=== PATIENT | female | born 1950 | race African-American/Black ===

== ENCOUNTER → 2016-06-02 | Outpatient (CLI) | payer MEDICARE, MEDICAID ==
[~2016-06-02] MED LIST: ABILIFY2 MG PO; ADALAT CC60 MG PO; ADVAIR 100/28 DISKU1 IH; ADVAIR 100/28 DISKUS IH; ADVAIR IH; ADVIL200 MG PO; ALBUTEROL0.09 MG/A1 IH; ALBUTEROL1.25 MG/3 IH; ALMACONE 360 M360 ML PO; ALPARAZOLAM0.5 MG PO; ALPRAZOLAM0.25 M1 PO; AMBIEN 5MG TABLE5 MG PO; ARTHROTEC PO; ASCRIPTIN1 TA1 PO; ASPI325T6; ASPIR-LOW81 MG PO; ASPIRIN 32325 MG/TAB PO; ASPIRIN 81M81 MG/TA2; ASPIRIN 81M81 MG/TA2 PO; ASPIRIN E.C. 8181 MG PO; ASPIRIN E.C.325 MG PO; ATIVAN0.5 MG PO; BENADRYL25 MG PO; BENICAR; BENICAR 20MG TA20 MG PO; BENICAR PO; BRILINTA90 MG PO; BUFFERED ASPIRIN; BUSPAR 15MG TAB15 MG PO; BUSPAR DIVIDOSE15 MG PO; BUSPAR10 MG PO; BUSPIRONE PO; BUSPIRONE15 MG PO; CARDIZEM CD 24240 MG PO; CARDIZEM CD240 MG; CARDIZEM LA240 MG PO; CARTIA XT PO; CARTIA XT240 MG PO; CATAPRES 0.1MG0.1 MG PO; CATAPRES-T0.1 MG/24 TD; CATAPRES0.1 MG PO; CATAPRES0.2 MG PO; CELEXA; CELEXA 20MG20 MG/TAB PO; CELEXA40 MG PO; CITALOPRAM20 MG PO; CITALOPRAM40 MG PO; CLARITIN 1010 MG/TAB PO; CLARITIN10 MG PO; CLEOCIN HC150 MG/CAP PO; CLONAZEPAM PO; CLONAZEPAM2 MG PO; CLONIDINE0.1 MG PO; CLOPIDOGREL PO; COLACE 100100 MG/CAP PO; COLACE100 MG/10 PO; COUMADIN5 MG PO; CYMBALTA; CYMBALTA 60MG60 MG PO; DARVOCET N; DESYREL 50MG50 MG PO; DESYREL DIVIDO150 M1 PO; DOXYCYCLINE 10100 MG PO; DULCOLAX STOOL100 MG PO; EFFIENT10 MG PO; FELDENE10 MG PO; FLONASEALLERGY NS; GABAPENTIN; GLUCOPHAGE1000 MG PO; GLUCOTROL XL2.5 MG PO; GOOD NEIGH1200 MG/15 PO; HCTZ 25MG25 MG PO; IMDUR 30MG30 MG/TAB PO; IMDUR 60MG60 MG/TAB PO; IMDUR120 MG PO; IMDUR30 MG PO; IMODIUM 2MG CAPS2 MG PO; ISOSORBIDE30 MG PO; K-DUR 2020 MEQ PO; K-DUR20 MEQ PO; K-LOR CON PO; KLONOPIN 0.5MG0.5 MG PO; KLOR-CON M2020 MEQ PO; L-THYROXINE PO; LANTUS SOLOS100 U/ML SC; LANTUS100 U/ML SC; LANTUS100 U/ML SQ; LASIX 40MG TABL40 MG PO; LASIX40 MG PO; LEVOTHROID0.175 MG PO; LEVOTHYROXIN0.025 MG PO; LEVOTHYROXINE PO; LEVOXYL0.025 MG; LEVOXYL0.1 MG PO; LEVOXYL0.125 MG PO; LISINOPRIL PO; LOPRESSOR 225 MG/TAB PO; LOPRESSOR100 MG PO; LORTAB 5/500 501 TAB PO; METFORMIN HCL500 M1 PO; METOCLOPRAMIDE5 MG PO; METOPROLOL; METOPROLOL SUCC50 MG PO; METOPROLOL25 MG PO; MIRALAX 255 GM255 GM PO; MOBIC 7.5MG7.5 MG PO; NEURONTIN100 MG/CAP PO; NEXIUM 40MG40 MG PO; NEXIUM40 MG PO; NITROQUICK0.4 MG SL; NITROSTAT0.4 MG SL; NITROSTAT0.4 MG/TAB SL; NORCO 325 MG-101 TAB PO; NORCO 325 MG-51 TAB PO; NOVOLOG FLEX100 U/ML SQ; PERCOCET 325 MG1 TA2 PO; PHENERGAN12.5 MG/SU RC; PLAVIX 75MG TAB75 MG; PLAVIX 75MG TAB75 MG PO; POTASSIUM CH2 MEQ/ML PO; POTASSIUM CL 220 MEQ PO; PRAVACHOL80 MG PO; PRAVASTATIN SOD80 MG PO; PREDNISONE20 MG PO; PRILOSEC 20MG20 MG PO; PRILOSEC10 MG PO; PRINIVIL10 MG PO; PRISTIQ 50 MG T50 MG PO; PROCARDIA XL 6060 MG PO; PROTONIX 40MG T40 MG PO; PROVENTIL0.09 MG/A1 IH; QUININE SULFAT324 MG PO; RANEXA 500MG T500 MG PO; REGLAN 5MG T5 MG/TAB PO; REGLAN10 MG PO; RELION VEN0.09 MG/Ac IH; REQUIP 0.5MG0.5 MG PO; SENNA-S 50 MG-81 TAB PO; SENOKOT S 50 MG1 TAB; SENOKOT S 50 MG1 TAB PO; SENOKOT-S TAB1 UDTAB PO; SENOKOT8.6 MG PO; SEROQUEL 1100 MG/TAB PO; SEROQUEL 200MG200 MG PO; SEROQUEL PO; SEROQUEL200 MG PO; SEROQUEL300 MG PO; SYNTHROID0.1 MG/TAB PO; SYNTHROID0.112 MG/T PO; SYNTHROID0.15 MG PO; SYNTHROID0.175 MG PO; TOPROL XL100 MG PO; TRADJENTA5 MG PO; TRAMADOL50 MG PO; TYLENOL #3 301 UDTAB PO; TYLENOL 325MG325 MG PO; TYLENOL EXTRA500 M1 PO; ULTRAM 50MG TAB50 MG; ULTRAM 50MG TAB50 MG PO; UNABLE; VENTOLIN H0.09 MG/AC IH; VITAMIN D32000 IU PO; VOLTAREN50 MG PO; XANAX0.25 MG PO; ZANTAC 150MG T150 MG PO; ZESTRIL30 MG PO; ZESTRIL40 MG PO; ZITHROMAX500 M2 PO; ZOCOR; ZOCOR 40MG40 MG PO; ZOCOR40 MG PO; ZYLOPRIM 100MG100 MG PO
[2016-06-02 12:52] LABS: HEMATOCRIT 38.5 % (37.0-47.0); HEMOGLOBIN 12.8 g/dl (12.5-16.0); MEAN CELL VOLUME 96 fl (80.0-100.0); MEAN CORPUSCULAR HEMOGLOBIN 32 pg (27.0-31.0); MEAN CORPUSCULAR HGB CONC 33 g/dl (33.0-37.0); MEAN PLATELET VOLUME 9.6 fl (7.4-10.4); PLATELET COUNT 241 K/mm3 (130-400); RED BLOOD COUNT 4.03 M/mm3 (4.10-5.30); REDCELL DISTRIBUTION WIDTH-CV 13.8 % (11.5-14.5); WHITE BLOOD COUNT 7.1 K/mm3 (4.8-10.8)
[2016-06-02 13:09] LABS: ADJUSTED CALCIUM 9.7 mg/dL (8.4-10.2); ALBUMIN 3.9 gm/dL (3.5-5.0); BILIRUBIN,TOTAL 0.6 mg/dL (0.0-1.0); CALCIUM 9.6 mg/dL (8.4-10.2); CREATININE, serum 1.18 mg/dL (0.52-1.25); POTASSIUM 3.6 mmol/L (3.4-5.0); TOTAL PROTEIN 6.9 gm/dL (6.4-8.2)
[2016-06-02 13:40] LABS: THYROID STIMULATING HORMONE 4.74 uIU/mL (0.465-4.680)
== END ==
LOC: ZLAB.STJ 12:31
PROVIDERS: Internal Medicine
DX: I50.9 Heart failure, unspecified (principal); E11.43 Type 2 diabetes mellitus with diabetic autonomic (poly)neuropathy; E89.0 Postprocedural hypothyroidism; E55.9 Vitamin D deficiency, unspecified

== ENCOUNTER 2016-06-25 16:00 | Emergency (ER) | payer MEDICARE, MEDICAID ==
[~2016-06-25] VITALS: Ht 170.2 cm; Wt 104.5 kg
[~2016-06-25 16:00] MED LIST changes: -ALMACONE 360 M360 ML PO; -GOOD NEIGH1200 MG/15 PO; -IMODIUM 2MG CAPS2 MG PO; -NOVOLOG FLEX100 U/ML SQ; -PHENERGAN12.5 MG/SU RC; -REQUIP 0.5MG0.5 MG PO; -TYLENOL 325MG325 MG PO
[2016-06-25 16:55] LABS: BASO % 0.4 % (0.0-2.0); EOS # 0.1 (0.0-0.7); EOS % 1.8 % (0-4.0); GRAN % 68.2 % (42.2-75.2); HEMATOCRIT 37.2 % (37.0-47.0); HEMOGLOBIN 12.3 g/dl (12.5-16.0); LYMPH # 1.6 (1.2-3.4); MEAN CELL VOLUME 96 fl (80.0-100.0); MEAN CORPUSCULAR HEMOGLOBIN 32 pg (27.0-31.0); MEAN CORPUSCULAR HGB CONC 33 g/dl (33.0-37.0); MEAN PLATELET VOLUME 9.5 fl (7.4-10.4); MONO # 0.5 (0.1-0.6); MONO % 7.1 % (1.7-9.3); PLATELET COUNT 221 K/mm3 (130-400); RED BLOOD COUNT 3.89 M/mm3 (4.10-5.30); REDCELL DISTRIBUTION WIDTH-CV 14.2 % (11.5-14.5); WHITE BLOOD COUNT 7.4 K/mm3 (4.8-10.8)
[2016-06-25 17:08] LABS: ADJUSTED CALCIUM 9.2 mg/dL (8.4-10.2); ALANINE AMINOTRANSFERASE 26 U/L (9-52); ALBUMIN 4.1 gm/dL (3.5-5.0); ALKALINE PHOSPHATASE 82 U/L (50-136); ANION GAP 12 mmol/L (7-16); BILIRUBIN,TOTAL 0.6 mg/dL (0.0-1.0); BLOOD UREA NITROGEN 18 mg/dL (7-17); CALCIUM 9.3 mg/dL (8.4-10.2); CARBON DIOXIDE 29 mmol/L (22-30); CHLORIDE 101 mmol/L (98-107); CREATININE, serum 1.28 mg/dL (0.52-1.25); GLUCOSE 196 mg/dL (74-106); POTASSIUM 3.5 mmol/L (3.4-5.0); SODIUM 141 mmol/L (137-145); TOTAL PROTEIN 7.3 gm/dL (6.4-8.2)
[2016-06-25 17:11] LABS: ACETAMINOPHEN < 10 ug/mL (10-30); SALICYLATE < 1.0 mg/dL
[2016-06-25 17:26] LABS: PH 5 (5-8); SQUAMOUS EPITHELIAL 0-2 /hpf; URINE APPEARANCE Clear; URINE BACTERIA None Seen /hpf; URINE BILIRUBIN Negative (NEGATIVE); URINE BLOOD Negative (NEGATIVE); URINE COLOR Yellow; URINE GLUCOSE Negative (NEGATIVE); URINE KETONE Negative (NEGATIVE); URINE RBC 0-2 /hpf; URINE UROBILINOGEN Negative (NEGATIVE); URINE WBC 0-2 /hpf
[2016-06-25 17:33] LABS: AMPHETAMINE URINE NEGATIVE; BARBITURATES URINE NEGATIVE; BENZODIAZEPINES URINE NEGATIVE; BUPRENORPHINE URINE NEGATIVE; METHADONE URINE NEGATIVE; OPIATES URINE NEGATIVE; OXYCODONE URINE NEGATIVE; PHENCYCLIDINE URINE NEGATIVE; PROPOXYPHENE URINE NEGATIVE; THC CANNABINOIDS URINE NEGATIVE
[2016-06-25 20:33] VITALS: BP 151/83; PULSE 70; TEMP 98.5
== END 2016-06-25 20:35 | disposition home or self-care (01) ==
LOC: COL.ER 16:00
PROVIDERS: Emergency Medicine
DX: F33.3 Major depressive disorder, recurrent, severe with psychotic symptoms (principal); R45.851 Suicidal ideations; F43.10 Post-traumatic stress disorder, unspecified; I25.10 Atherosclerotic heart disease of native coronary artery without angina pectoris; I10 Essential (primary) hypertension; E11.9 Type 2 diabetes mellitus without complications; Z79.2 Long term (current) use of antibiotics; Z79.4 Long term (current) use of insulin

== ENCOUNTER → 2016-07-15 | Outpatient (CLI) | payer MEDICARE ==
[~2016-07-15] MED LIST changes: +ALMACONE 360 M360 ML PO; +GOOD NEIGH1200 MG/15 PO; +IMODIUM 2MG CAPS2 MG PO; +NOVOLOG FLEX100 U/ML SQ; +PHENERGAN12.5 MG/SU RC; +REQUIP 0.5MG0.5 MG PO; +TYLENOL 325MG325 MG PO
== END ==
LOC: ZLAB.STJ 09:58
DX: E89.0 Postprocedural hypothyroidism (principal)

== ENCOUNTER → 2016-09-15 | Outpatient (REF) ==
[2016-09-15 09:56] LABS: ADJUSTED CALCIUM 9.3 mg/dL (8.4-10.2); ALBUMIN 3.5 gm/dL (3.5-5.0); BILIRUBIN,TOTAL 0.7 mg/dL (0.0-1.0); CALCIUM 8.9 mg/dL (8.4-10.2); CREATININE, serum 0.87 mg/dL (0.52-1.25); POTASSIUM 4.2 mmol/L (3.4-5.0); TOTAL PROTEIN 6.1 gm/dL (6.4-8.2)
== END ==
LOC: ZLAB.STJ 09:31
PROVIDERS: Internal Medicine
DX: Z01.89 Encounter for other specified special examinations (principal)

== ENCOUNTER → 2016-10-19 | Outpatient (CLI) | payer MEDICARE, MEDICAID ==
[2016-10-19 14:17] LABS: CALCIUM 9.5 mg/dL (8.4-10.2); CREATININE, serum 0.89 mg/dL (0.52-1.25); POTASSIUM 4.3 mmol/L (3.4-5.0)
[2016-10-19 14:48] LABS: THYROID STIMULATING HORMONE 0.883 uIU/mL (0.465-4.680)
== END ==
LOC: ZLAB.STJ 09:54
PROVIDERS: Internal Medicine
DX: I50.9 Heart failure, unspecified (principal); E11.43 Type 2 diabetes mellitus with diabetic autonomic (poly)neuropathy; E89.0 Postprocedural hypothyroidism

== ENCOUNTER → 2016-11-24 | Outpatient (REF) | LOC: ZLAB.STJ 11:58 | DX: Z01.89 Encounter for other specified special examinations (principal) ==

== ENCOUNTER → 2016-11-24 | Outpatient (CLI) | payer MEDICARE ==
[2016-11-24 13:22] LABS: PH 5 (5-8); SQUAMOUS EPITHELIAL 0-2 /hpf; URINE APPEARANCE Clear; URINE BACTERIA Many /hpf; URINE BILIRUBIN Negative (NEGATIVE); URINE BLOOD Negative (NEGATIVE); URINE COLOR Yellow; URINE GLUCOSE 3+ (NEGATIVE); URINE KETONE Negative (NEGATIVE); URINE RBC None Seen /hpf; URINE UROBILINOGEN Negative (NEGATIVE); URINE WBC 0-2 /hpf
== END ==
LOC: ZLAB.STJ 12:44
PROVIDERS: Internal Medicine
DX: R41.82 Altered mental status, unspecified (principal)

== ENCOUNTER → 2016-11-27 | Outpatient (REF) ==
[2016-11-27 18:07] LABS: PH 5 (5-8); SQUAMOUS EPITHELIAL None Seen /hpf; URINE APPEARANCE Clear; URINE BACTERIA Rare /hpf; URINE BILIRUBIN Negative (NEGATIVE); URINE BLOOD Negative (NEGATIVE); URINE COLOR Straw; URINE GLUCOSE 3+ (NEGATIVE); URINE KETONE Negative (NEGATIVE); URINE RBC 0-2 /hpf; URINE UROBILINOGEN Negative (NEGATIVE)
== END ==
LOC: ZLAB.STJ 17:39
PROVIDERS: Internal Medicine
DX: Z01.89 Encounter for other specified special examinations (principal)

== ENCOUNTER → 2016-11-27 | Outpatient (CLI) | payer MEDICARE | LOC: ZLAB.STJ 17:24 | DX: N39.0 Urinary tract infection, site not specified (principal) ==

== ENCOUNTER 2016-11-29 10:52 | Emergency (ER) | payer MEDICARE ==
[~2016-11-29] VITALS: Ht 170.2 cm; Wt 90.9 kg
[2016-11-29 10:52] VITALS: TEMP 98.3
[~2016-11-29 10:52] MED LIST changes: -ALMACONE 360 M360 ML PO; -GOOD NEIGH1200 MG/15 PO; -IMODIUM 2MG CAPS2 MG PO; -NOVOLOG FLEX100 U/ML SQ; -PHENERGAN12.5 MG/SU RC; -REQUIP 0.5MG0.5 MG PO; -TYLENOL 325MG325 MG PO
[2016-11-29 11:55] LABS: BASO % 0.4 % (0.0-2.0); EOS # 0.1 (0.0-0.7); EOS % 0.8 % (0-4.0); GRAN % 63.6 % (42.2-75.2); HEMATOCRIT 42.6 % (37.0-47.0); HEMOGLOBIN 14.4 g/dl (12.5-16.0); LYMPH # 2.1 (1.2-3.4); LYMPH % 26.6 % (20.0-51.0); MEAN CELL VOLUME 94 fl (80.0-100.0); MEAN CORPUSCULAR HEMOGLOBIN 32 pg (27.0-31.0); MEAN CORPUSCULAR HGB CONC 34 g/dl (33.0-37.0); MEAN PLATELET VOLUME 9.7 fl (7.4-10.4); MONO # 0.6 (0.1-0.6); MONO % 7.5 % (1.7-9.3); PLATELET COUNT 228 K/mm3 (130-400); RED BLOOD COUNT 4.52 M/mm3 (4.10-5.30); REDCELL DISTRIBUTION WIDTH-CV 13.2 % (11.5-14.5); WHITE BLOOD COUNT 7.8 K/mm3 (4.8-10.8)
[2016-11-29 12:03] LABS: ANION GAP 10 mmol/L (7-16); BLOOD UREA NITROGEN 14 mg/dL (7-17); CALCIUM 9.4 mg/dL (8.4-10.2); CARBON DIOXIDE 29 mmol/L (22-30); CHLORIDE 94 mmol/L (98-107); CREATININE, serum 0.99 mg/dL (0.52-1.25); GLUCOSE 351 mg/dL (74-106); POTASSIUM 3.9 mmol/L (3.4-5.0); SODIUM 132 mmol/L (137-145)
[2016-11-29 12:11] LABS: ACETAMINOPHEN < 10 ug/mL (10-30); SALICYLATE < 1.0 mg/dL
[2016-11-29 12:15] LABS: B-TYPE NATRIURETIC PEPTIDE 50 pg/mL (0-125); TROPONIN-I < 0.012 ng/mL (0.000-0.034)
[2016-11-29 12:24] LABS: PH 7 (5-8); SQUAMOUS EPITHELIAL 0-2 /hpf; URINE APPEARANCE Clear; URINE BACTERIA Rare /hpf; URINE BILIRUBIN Negative (NEGATIVE); URINE BLOOD Negative (NEGATIVE); URINE COLOR Yellow; URINE GLUCOSE 3+ (NEGATIVE); URINE KETONE Negative (NEGATIVE); URINE RBC 0-2 /hpf; URINE UROBILINOGEN Negative (NEGATIVE); URINE WBC 0-2 /hpf
[2016-11-29 12:28] LABS: AMPHETAMINE URINE NEGATIVE; BARBITURATES URINE NEGATIVE; BENZODIAZEPINES URINE NEGATIVE; BUPRENORPHINE URINE NEGATIVE; METHADONE URINE NEGATIVE; OPIATES URINE NEGATIVE; OXYCODONE URINE NEGATIVE; PHENCYCLIDINE URINE NEGATIVE; PROPOXYPHENE URINE NEGATIVE; THC CANNABINOIDS URINE NEGATIVE
[2016-11-29] MEDS ORDERED: REQUIP 0.5MG0.5 MG PO (12:47)
[2016-11-29] MEDS ORDERED: TYLENOL 325MG325 MG PO (12:48)
[2016-11-29] MEDS ORDERED: PHENERGAN12.5 MG/SU RC (12:49)
[2016-11-29] MEDS ORDERED: COLACE 100100 MG/CAP PO (13:37)
[2016-11-29] MEDS ORDERED: GOOD NEIGH1200 MG/15 PO (13:39)
[2016-11-29 13:56] VITALS: BP 136/86; PULSE 75
[2016-11-29] MEDS ORDERED: NOVOLOG FLEX100 U/ML SQ (14:00)
[2016-11-29] MEDS ORDERED: ALMACONE 360 M360 ML PO (14:00)
[2016-11-29] MEDS ORDERED: IMODIUM 2MG CAPS2 MG PO (14:00)
== END 2016-11-29 13:54 ==
LOC: COL.ER 10:52
PROVIDERS: Emergency Medicine
DX: S09.90XA Unspecified injury of head, initial encounter (principal); W19.XXXA Unspecified fall, initial encounter; Y92.129 Unspecified place in nursing home as the place of occurrence of the external cause; I25.10 Atherosclerotic heart disease of native coronary artery without angina pectoris; I11.0 Hypertensive heart disease with heart failure; I50.9 Heart failure, unspecified; Z95.5 Presence of coronary angioplasty implant and graft; F32.9 Major depressive disorder, single episode, unspecified; F41.9 Anxiety disorder, unspecified; E11.65 Type 2 diabetes mellitus with hyperglycemia; Z79.4 Long term (current) use of insulin; Z91.81 History of falling; Z79.02 Long term (current) use of antithrombotics/antiplatelets
CPT/HCPCS: J1815; J1885; J7030

== ENCOUNTER 2016-12-27 13:00 | Emergency (ER) | payer MEDICARE ==
[~2016-12-27 13:00] MED LIST changes: +ALMACONE 360 M360 ML PO; +GOOD NEIGH1200 MG/15 PO; +IMODIUM 2MG CAPS2 MG PO; +NOVOLOG FLEX100 U/ML SQ; +PHENERGAN12.5 MG/SU RC; +REQUIP 0.5MG0.5 MG PO; +TYLENOL 325MG325 MG PO
[2016-12-27 13:03] VITALS: TEMP 98.8
[2016-12-27 13:59] LABS: BASO % 0.4 % (0.0-2.0); EOS # 0.2 (0.0-0.7); EOS % 1.9 % (0-4.0); GRAN % 67.1 % (42.2-75.2); HEMOGLOBIN 12.9 g/dl (12.5-16.0); LYMPH # 1.9 (1.2-3.4); MEAN CELL VOLUME 100 fl (80.0-100.0); MEAN CORPUSCULAR HEMOGLOBIN 33 pg (27.0-31.0); MEAN CORPUSCULAR HGB CONC 33 g/dl (33.0-37.0); MEAN PLATELET VOLUME 8.8 fl (7.4-10.4); MONO # 0.8 (0.1-0.6); MONO % 8.5 % (1.7-9.3); PLATELET COUNT 344 K/mm3 (130-400); RED BLOOD COUNT 3.92 M/mm3 (4.10-5.30); REDCELL DISTRIBUTION WIDTH-CV 14.3 % (11.5-14.5)
[2016-12-27 14:06] LABS: ADJUSTED CALCIUM 9.1 mg/dL (8.4-10.2); ALANINE AMINOTRANSFERASE 27 U/L (9-52); ALBUMIN 4.1 gm/dL (3.5-5.0); ALKALINE PHOSPHATASE 99 U/L (50-136); ANION GAP 13 mmol/L (7-16); BILIRUBIN,TOTAL 0.5 mg/dL (0.0-1.0); BLOOD UREA NITROGEN 18 mg/dL (7-17); CALCIUM 9.2 mg/dL (8.4-10.2); CARBON DIOXIDE 25 mmol/L (22-30); CHLORIDE 99 mmol/L (98-107); CREATININE, serum 1.04 mg/dL (0.52-1.25); GLUCOSE 281 mg/dL (74-106); POTASSIUM 3.8 mmol/L (3.4-5.0); SODIUM 137 mmol/L (137-145); TOTAL PROTEIN 7.5 gm/dL (6.4-8.2)
[2016-12-27 14:07] LABS: ACETAMINOPHEN < 10 ug/mL (10-30); SALICYLATE < 1.0 mg/dL
[2016-12-27 16:50] VITALS: BP 123/84; PULSE 76
== END 2016-12-27 16:57 | disposition home or self-care (01) ==
LOC: COL.ER 13:00
PROVIDERS: Emergency Medicine
DX: R45.1 Restlessness and agitation (principal); F43.9 Reaction to severe stress, unspecified; R09.89 Other specified symptoms and signs involving the circulatory and respiratory systems; I25.10 Atherosclerotic heart disease of native coronary artery without angina pectoris; I10 Essential (primary) hypertension; E11.51 Type 2 diabetes mellitus with diabetic peripheral angiopathy without gangrene; F41.9 Anxiety disorder, unspecified; Z79.4 Long term (current) use of insulin; Z79.82 Long term (current) use of aspirin; Z79.84 Long term (current) use of oral hypoglycemic drugs

== ENCOUNTER 2017-02-11 19:14 | Emergency (ER) | payer MEDICARE, MEDICAID ==
[~2017-02-11] VITALS: Ht 170.2 cm; Wt 98.2 kg
[2017-02-11 19:34] VITALS: TEMP 98.5
[2017-02-11 20:42] LABS: BASO % 0.4 % (0.0-2.0); EOS # 0.1 (0.0-0.7); EOS % 1.5 % (0-4.0); GRAN # 4.9 (1.4-6.5); GRAN % 66.1 % (42.2-75.2); HEMATOCRIT 37.5 % (37.0-47.0); HEMOGLOBIN 12.3 g/dl (12.5-16.0); LYMPH # 1.5 (1.2-3.4); LYMPH % 20.7 % (20.0-51.0); MEAN CELL VOLUME 100 fl (80.0-100.0); MEAN CORPUSCULAR HEMOGLOBIN 33 pg (27.0-31.0); MEAN CORPUSCULAR HGB CONC 33 g/dl (33.0-37.0); MEAN PLATELET VOLUME 9.5 fl (7.4-10.4); MONO # 0.8 (0.1-0.6); MONO % 10.1 % (1.7-9.3); PLATELET COUNT 233 K/mm3 (130-400); RED BLOOD COUNT 3.75 M/mm3 (4.10-5.30); REDCELL DISTRIBUTION WIDTH-CV 13.4 % (11.5-14.5); WHITE BLOOD COUNT 7.5 K/mm3 (4.8-10.8)
[2017-02-11 21:06] LABS: ADJUSTED CALCIUM 9.3 mg/dL (8.4-10.2); ALBUMIN 4.1 gm/dL (3.5-5.0); BILIRUBIN,TOTAL 0.6 mg/dL (0.0-1.0); CALCIUM 9.4 mg/dL (8.4-10.2); CREATININE, serum 1.43 mg/dL (0.52-1.25); POTASSIUM 4.4 mmol/L (3.4-5.0); TOTAL PROTEIN 7.5 gm/dL (6.4-8.2)
[2017-02-11 21:45] VITALS: BP 132/60; PULSE 86
== END 2017-02-11 21:46 | disposition home or self-care (01) ==
LOC: COL.ER 19:14
PROVIDERS: Emergency Medicine
DX: S09.90XA Unspecified injury of head, initial encounter (principal); S00.83XA Contusion of other part of head, initial encounter; E86.0 Dehydration; I10 Essential (primary) hypertension; E11.9 Type 2 diabetes mellitus without complications; E78.5 Hyperlipidemia, unspecified; F03.90 Unspecified dementia, unspecified severity, without behavioral disturbance, psychotic disturbance, mood disturbance, and anxiety; Z79.84 Long term (current) use of oral hypoglycemic drugs; Z79.82 Long term (current) use of aspirin; Z79.4 Long term (current) use of insulin; W05.0XXA Fall from non-moving wheelchair, initial encounter; Y92.129 Unspecified place in nursing home as the place of occurrence of the external cause

== ENCOUNTER 2017-04-03 22:03 | Emergency (ER) | payer MEDICARE, MEDICAID ==
[~2017-04-03] VITALS: Ht 152.4 cm; Wt 86.4 kg
[2017-04-03 22:05] VITALS: TEMP 97.5
[2017-04-03 22:34] LABS: ALLEN TEST YES; ALLENS TEST RESULT PASS; ARTERIAL BLD GAS O2 SATURATION 92.8 % (92-100); ARTERIAL BLD GAS TCO2 CT 29.1; ARTERIAL BLOOD GAS BASE EXCESS 3.2 (-2-2); ARTERIAL BLOOD GAS HCO3 27.8 meq/L (22-26); ARTERIAL BLOOD GAS PHT 7.43 C (7.35-7.45); ARTERIAL BLOOD GAS PO2 68.2 mmHg (80-100); ARTERIAL BLOOD GAS PO2T 68.2 (80-100); ARTERIAL BLOOD GAS pH 7.43 (7.35-7.45); ATS? YES; OXYHEMOGLOBIN 92.2 %
[2017-04-03 22:44] LABS: BASO % 0.3 % (0.0-2.0); EOS # 0.1 (0.0-0.7); EOS % 1.1 % (0-4.0); GRAN # 7.5 (1.4-6.5); GRAN % 66.9 % (42.2-75.2); LYMPH # 2.4 (1.2-3.4); LYMPH % 21.8 % (20.0-51.0); MEAN CELL VOLUME 96 fl (80.0-100.0); MEAN CORPUSCULAR HGB CONC 33 g/dl (33.0-37.0); MONO % 9.3 % (1.7-9.3); PLATELET COUNT 226 K/mm3 (130-400); RED BLOOD COUNT 3.39 M/mm3 (4.10-5.30); WHITE BLOOD COUNT 11.2 K/mm3 (4.8-10.8)
[2017-04-03 22:49] LABS: HEMATOCRIT 32.5 % (37.0-47.0); HEMOGLOBIN 10.7 g/dl (12.5-16.0); MEAN CORPUSCULAR HEMOGLOBIN 32 pg (27.0-31.0)
[2017-04-03 22:50] LABS: PROTHROMBIN TIME 10.5 SECONDS (9.7-12.8)
[2017-04-03 22:55] LABS: CALCIUM 9.3 mg/dL (8.4-10.2); CREATININE, serum 1.37 mg/dL (0.52-1.25)
[2017-04-04 00:07] LABS: ALLEN TEST YES; ALLENS TEST RESULT PASS; ARTERIAL BLD GAS O2 SATURATION 86.8 % (92-100); ARTERIAL BLOOD GAS BASE EXCESS -0.4 (-2-2); ARTERIAL BLOOD GAS HCO3 23.9 meq/L (22-26); ARTERIAL BLOOD GAS PHT 7.42 C (7.35-7.45); ARTERIAL BLOOD GAS PO2 54.2 mmHg (80-100); ARTERIAL BLOOD GAS PO2T 54.2 (80-100); ARTERIAL BLOOD GAS pH 7.42 (7.35-7.45); ATS? YES
[2017-04-04 00:59] LABS: ALLEN TEST NO; ARTERIAL BLD GAS O2 SATURATION 97.2 % (92-100); ARTERIAL BLOOD GAS HCO3 21.9 meq/L (22-26); ARTERIAL BLOOD GAS PHT 7.37 C (7.35-7.45); ARTERIAL BLOOD GAS PO2 115.1 mmHg (80-100); ARTERIAL BLOOD GAS PO2T 115.1 (80-100); ARTERIAL BLOOD GAS pH 7.37 (7.35-7.45); ATS? YES; OXYHEMOGLOBIN 96.4 %
[2017-04-04 01:59] VITALS: BP 145/65; PULSE 74
[2017-04-04] MEDS ORDERED: NORVASC 10MG10 MG (02:59)
[2017-04-04] MEDS ORDERED: PEPCID 20MG TAB20 MG (02:59)
[2017-04-04] MEDS ORDERED: DEPAKOTE 250MG250 MG (03:00)
[2017-04-04] MEDS ORDERED: EXELON PAT4.6 MG/24 (03:00)
[2017-04-04] MEDS ORDERED: B-121000 MCG (03:01)
[2017-04-04] MEDS ORDERED: ZYPREXA 5MG5 MG (03:01)
[2017-04-04] MEDS ORDERED: ZYPREXA15 MG (03:02)
== END 2017-04-04 01:40 | disposition short-term general hospital (02) ==
LOC: COL.ER 22:03
PROVIDERS: Emergency Medicine
DX: J96.91 Respiratory failure, unspecified with hypoxia (principal); R04.0 Epistaxis; I10 Essential (primary) hypertension; I25.2 Old myocardial infarction; J45.909 Unspecified asthma, uncomplicated; Z91.81 History of falling; Z79.02 Long term (current) use of antithrombotics/antiplatelets; Z79.82 Long term (current) use of aspirin; Z95.5 Presence of coronary angioplasty implant and graft; Z90.710 Acquired absence of both cervix and uterus
CPT/HCPCS: J1956; J2060; J7030; J7040

== ENCOUNTER → 2017-04-28 | Outpatient (CLI) | payer MEDICARE, MEDICAID ==
[~2017-04-28] MED LIST changes: +B-121000 MCG; +DEPAKOTE 250MG250 MG; +EXELON PAT4.6 MG/24; +NORVASC 10MG10 MG; +PEPCID 20MG TAB20 MG; +ZYPREXA 5MG5 MG; +ZYPREXA15 MG
[2017-04-28 10:52] LABS: ADJUSTED CALCIUM 9.4 mg/dL (8.4-10.2); ALBUMIN 4.2 gm/dL (3.5-5.0); BILIRUBIN,TOTAL 0.4 mg/dL (0.0-1.0); CALCIUM 9.6 mg/dL (8.4-10.2); CREATININE, serum 1.14 mg/dL (0.52-1.25); TOTAL PROTEIN 7.3 gm/dL (6.4-8.2)
[2017-04-28 11:23] LABS: THYROID STIMULATING HORMONE 12.8 uIU/mL (0.465-4.680)
[2017-04-28 23:55] LABS: RPR (VDRL) Non-reactive (())
[2017-04-30 14:45] LABS: ALBUMIN PERCENTAGE 56.6 % (48.7-61.8); ALPHA 1 FRACTION 0.4 g/dL (0.3-0.5); ALPHA 1 PERCENTAGE 5.6 % (3.4-8.3); ALPHA 2 FRACTION 0.7 g/dL (0.6-1.2); ALPHA 2 PERCENTAGE 9.4 % (8.4-17.5); BETA 1 FRACTION 0.5 g/dL (0.4-0.6); BETA 1 PERCENTAGE 6.9 % (5.4-8.9); BETA 2 FRACTION 0.5 g/dL (0.2-0.5); BETA 2 PERCENTAGE 6.5 % (3.8-7.7); GAMMA FRACTION 1.1 g/dL (0.4-1.7)
== END ==
LOC: ZLAB.STJ 09:47
PROVIDERS: Internal Medicine
DX: Z04.6 Encounter for general psychiatric examination, requested by authority (principal); E03.9 Hypothyroidism, unspecified; M62.81 Muscle weakness (generalized); I50.9 Heart failure, unspecified; N17.9 Acute kidney failure, unspecified; D50.9 Iron deficiency anemia, unspecified

== ENCOUNTER → 2017-04-30 | Outpatient (CLI) | payer MEDICARE, MEDICAID ==
[2017-04-30 12:29] LABS: BASO % 0.4 % (0.0-2.0); EOS # 0.1 (0.0-0.7); EOS % 1.8 % (0-4.0); GRAN # 4.1 (1.4-6.5); HEMATOCRIT 37.7 % (37.0-47.0); HEMOGLOBIN 11.8 g/dl (12.5-16.0); LYMPH # 1.8 (1.2-3.4); MEAN CELL VOLUME 101 fl (80.0-100.0); MEAN CORPUSCULAR HEMOGLOBIN 32 pg (27.0-31.0); MEAN CORPUSCULAR HGB CONC 31 g/dl (33.0-37.0); MEAN PLATELET VOLUME 9.1 fl (7.4-10.4); MONO # 0.7 (0.1-0.6); MONO % 10.1 % (1.7-9.3); PLATELET COUNT 241 K/mm3 (130-400); RED BLOOD COUNT 3.74 M/mm3 (4.10-5.30); WHITE BLOOD COUNT 6.7 K/mm3 (4.8-10.8)
[2017-04-30 12:54] LABS: ERYTHROCYTE SEDIMENTATION RATE 9 mm/hr (0-30)
[2017-04-30 13:03] LABS: THYROID STIMULATING HORMONE 11.9 uIU/mL (0.465-4.680)
[2017-05-01 00:23] LABS: RPR (VDRL) Non-reactive (())
[2017-05-04 13:12] LABS: ALBUMIN FRACTION 3.9 g/dL (2.6-4.5); ALBUMIN PERCENTAGE 58.8 % (48.7-61.8); ALPHA 1 FRACTION 0.3 g/dL (0.3-0.5); ALPHA 1 PERCENTAGE 4.8 % (3.4-8.3); ALPHA 2 FRACTION 0.6 g/dL (0.6-1.2); ALPHA 2 PERCENTAGE 8.9 % (8.4-17.5); BETA 1 FRACTION 0.5 g/dL (0.4-0.6); BETA 1 PERCENTAGE 6.7 % (5.4-8.9); BETA 2 FRACTION 0.4 g/dL (0.2-0.5); GAMMA PERCENTAGE 14.8 % (8.1-23.0); SERUM PROTEIN TOTAL 6.7 g/dL (6.0-7.6)
== END ==
LOC: COL.LAB 11:32
PROVIDERS: Psychiatry & Neurology Neurology
DX: G31.83 Neurocognitive disorder with Lewy bodies (principal); R29.6 Repeated falls

== ENCOUNTER → 2017-05-12 | Outpatient (CLI) | payer MEDICARE, MEDICAID ==
[~2017-05-12] MED LIST changes: +DEPAKOTE 125MG125 MG PO; +EXELON9.5 MG/24 TD; +FERROUS GL325 MG/TAB PO; +GENTLE LAXATIVE10 MG RC; +LOPRESSOR 550 MG/TAB PO; +MIRALAX PA17 GM/Dose PO; +NUPLAZID17 MG PO; +SYNTHROID0.075 MG/T PO
== END ==
LOC: COL.RAD 09:38
DX: M54.9 Dorsalgia, unspecified (principal); Z53.8 Procedure and treatment not carried out for other reasons

== ENCOUNTER → 2017-05-13 | Outpatient (CLI) | payer MEDICARE, MEDICAID | LOC: ZLAB.WCH 09:42 | DX: E11.43 Type 2 diabetes mellitus with diabetic autonomic (poly)neuropathy (principal) ==

== ENCOUNTER 2017-05-14 13:59 | Inpatient (IN) | payer MEDICARE, MEDICAID ==
[~2017-05-14] VITALS: Ht 170.2 cm; Wt 96.3 kg
[~2017-05-14 13:59] MED LIST changes: -DEPAKOTE 125MG125 MG PO; -EXELON9.5 MG/24 TD; -FERROUS GL325 MG/TAB PO; -GENTLE LAXATIVE10 MG RC; -LOPRESSOR 550 MG/TAB PO; -MIRALAX PA17 GM/Dose PO; -NUPLAZID17 MG PO; -SYNTHROID0.075 MG/T PO
[2017-05-14 17:51] LABS: COLLECTION METHOD CATHETER
[2017-05-14 18:13] LABS: MUCOUS Present /lpf; PH 5 (5-8); SQUAMOUS EPITHELIAL None Seen /hpf; URINE APPEARANCE Clear; URINE BACTERIA None Seen /hpf; URINE BILIRUBIN Negative (NEGATIVE); URINE BLOOD 2+ (NEGATIVE); URINE COLOR Amber; URINE GLUCOSE Negative (NEGATIVE); URINE KETONE Negative (NEGATIVE); URINE LEUKOCYTE ESTERASE Negative (NEGATIVE); URINE NITRATE Negative (NEGATIVE); URINE PROTEIN(semi-quant) Negative (NEGATIVE); URINE UROBILINOGEN Negative (NEGATIVE)
[2017-05-14 18:34] LABS: BASO % 0.5 % (0.0-2.0); EOS # 0.1 (0.0-0.7); EOS % 0.9 % (0-4.0); GRAN % 63.2 % (42.2-75.2); HEMATOCRIT 42.9 % (37.0-47.0); HEMOGLOBIN 14.2 g/dl (12.5-16.0); LYMPH # 2.2 (1.2-3.4); LYMPH % 27.2 % (20.0-51.0); MEAN CELL VOLUME 97 fl (80.0-100.0); MEAN CORPUSCULAR HEMOGLOBIN 32 pg (27.0-31.0); MEAN CORPUSCULAR HGB CONC 33 g/dl (33.0-37.0); MEAN PLATELET VOLUME 9.5 fl (7.4-10.4); MONO # 0.6 (0.1-0.6); MONO % 7.8 % (1.7-9.3); PLATELET COUNT 231 K/mm3 (130-400); RED BLOOD COUNT 4.42 M/mm3 (4.10-5.30); REDCELL DISTRIBUTION WIDTH-CV 15.2 % (11.5-14.5)
[2017-05-14 18:38] LABS: INR 0.9 (0.8-3.0); PROTHROMBIN TIME 10.5 SECONDS (9.7-12.8)
[2017-05-14 18:46] LABS: ALANINE AMINOTRANSFERASE 20 U/L (9-52); ALBUMIN 4.6 gm/dL (3.5-5.0); ALKALINE PHOSPHATASE 67 U/L (50-136); ANION GAP 12 mmol/L (7-16); AST,SGOT 22 U/L (15-37); BILIRUBIN,TOTAL 0.4 mg/dL (0.0-1.0); BLOOD UREA NITROGEN 24 mg/dL (7-17); CALCIUM 9.9 mg/dL (8.4-10.2); CARBON DIOXIDE 26 mmol/L (22-30); CHLORIDE 104 mmol/L (98-107); CREATINE KINASE 124 U/L (30-135); CREATININE, serum 1.28 mg/dL (0.52-1.25); GLUCOSE 163 mg/dL (74-106); POTASSIUM 3.8 mmol/L (3.4-5.0); SODIUM 142 mmol/L (137-145)
[2017-05-14 19:10] LABS: TROPONIN-I < 0.012 ng/mL (0.000-0.034)
[2017-05-14 19:18] LABS: VALPROIC ACID (DEPAKENE) 51.4 ug/mL (50.0-100.0)
[2017-05-14] MEDS ORDERED: FERROUS GL325 MG/TAB PO (21:15)
[2017-05-14] MEDS ORDERED: MIRALAX PA17 GM/Dose PO (21:17)
[2017-05-14] MEDS ORDERED: GENTLE LAXATIVE10 MG RC (21:17)
[2017-05-14] MEDS ORDERED: NUPLAZID17 MG PO (21:18)
[2017-05-14] MEDS ORDERED: TYLENOL 325MG325 MG PO (21:18)
[2017-05-14] MEDS ORDERED: SYNTHROID0.075 MG/T PO (21:19)
[2017-05-14] MEDS ORDERED: EXELON9.5 MG/24 TD (21:19)
[2017-05-14] MEDS ORDERED: LOPRESSOR 550 MG/TAB PO (21:20)
[2017-05-14 22:38] VITALS: BP 167/83; PULSE 80; TEMP 98
[2017-05-14 22:44] VITALS: BP 167/83; PULSE 82; TEMP 98
[2017-05-15 00:35] VITALS: BP 152/84; PULSE 86; TEMP 97.9
[2017-05-15 03:53] VITALS: BP 143/89; PULSE 92; TEMP 97.3
[2017-05-15 07:12] LABS: BASO % 0.4 % (0.0-2.0); EOS # 0.1 (0.0-0.7); EOS % 1.1 % (0-4.0); GRAN # 5.2 (1.4-6.5); HEMATOCRIT 41.6 % (37.0-47.0); HEMOGLOBIN 13.7 g/dl (12.5-16.0); LYMPH # 1.6 (1.2-3.4); LYMPH % 20.8 % (20.0-51.0); MEAN CELL VOLUME 97 fl (80.0-100.0); MEAN CORPUSCULAR HEMOGLOBIN 32 pg (27.0-31.0); MEAN CORPUSCULAR HGB CONC 33 g/dl (33.0-37.0); MEAN PLATELET VOLUME 9.6 fl (7.4-10.4); MONO # 0.6 (0.1-0.6); MONO % 8.4 % (1.7-9.3); PLATELET COUNT 199 K/mm3 (130-400); RED BLOOD COUNT 4.31 M/mm3 (4.10-5.30); REDCELL DISTRIBUTION WIDTH-CV 14.8 % (11.5-14.5)
[2017-05-15 07:25] LABS: CALCIUM 9.3 mg/dL (8.4-10.2); CHOLESTEROL RISK RATIO 3.2; CREATININE, serum 1.01 mg/dL (0.52-1.25); POTASSIUM 3.2 mmol/L (3.4-5.0)
[2017-05-15 07:57] VITALS: BP 149/75; PULSE 90; TEMP 98.3
[2017-05-15 11:57] VITALS: BP 157/83; PULSE 88; TEMP 98.8
[2017-05-15 16:19] VITALS: BP 134/102; PULSE 103; TEMP 98.7
[2017-05-15 20:46] LABS: FOLATE (FOLIC ACID) 13.7 ng/mL (7.0-31.4)
[2017-05-15 21:11] VITALS: BP 128/82; PULSE 76; TEMP 98.5
[2017-05-16] VITALS (7 sets, daily range): BP systolic 131–169; BP diastolic 63–97; PULSE 72–90; TEMP 97.3–98.6
[2017-05-17 04:19] VITALS: BP 171/94; PULSE 72; TEMP 97.4
[2017-05-17 07:15] LABS: HEMATOCRIT 39.8 % (37.0-47.0); HEMOGLOBIN 13.2 g/dl (12.5-16.0); MEAN CELL VOLUME 96 fl (80.0-100.0); MEAN CORPUSCULAR HEMOGLOBIN 32 pg (27.0-31.0); MEAN CORPUSCULAR HGB CONC 33 g/dl (33.0-37.0); MEAN PLATELET VOLUME 9.9 fl (7.4-10.4); PLATELET COUNT 201 K/mm3 (130-400); RED BLOOD COUNT 4.15 M/mm3 (4.10-5.30); REDCELL DISTRIBUTION WIDTH-CV 14.8 % (11.5-14.5)
[2017-05-17 07:30] LABS: CREATININE, serum 1.14 mg/dL (0.52-1.25); POTASSIUM 3.1 mmol/L (3.4-5.0)
[2017-05-17 08:09] VITALS: BP 146/71; PULSE 69; TEMP 97.9
[2017-05-17 12:01] VITALS: BP 110/47; PULSE 89; TEMP 98.9
[2017-05-17 12:21] VITALS: BP 145/68; PULSE 68; TEMP 98.1
[2017-05-17] MEDS ORDERED: DEPAKOTE 125MG125 MG PO ×2 (15:02)
[2017-05-17 15:34] VITALS: BP 145/68; PULSE 68; TEMP 98.1
[2017-05-18 02:07] LABS: RPR (VDRL) Non-reactive (())
== END 2017-05-17 16:12 | DRG 65 ==
LOC: COL.ER 13:59 → MEDICAL 19:35
PROVIDERS: Emergency Medicine; Internal Medicine Pulmonary Disease; Nurse Practitioner; Psychiatry & Neurology Neurology
DX: I63.9 Cerebral infarction, unspecified (principal); N17.9 Acute kidney failure, unspecified; I50.32 Chronic diastolic (congestive) heart failure; F01.51 Vascular dementia, unspecified severity, with behavioral disturbance; G20 Parkinson's disease; E11.42 Type 2 diabetes mellitus with diabetic polyneuropathy; F48.8 Other specified nonpsychotic mental disorders; I11.0 Hypertensive heart disease with heart failure; I25.10 Atherosclerotic heart disease of native coronary artery without angina pectoris; F31.9 Bipolar disorder, unspecified; Z95.5 Presence of coronary angioplasty implant and graft; Z79.4 Long term (current) use of insulin; E87.6 Hypokalemia
CPT/HCPCS: 99222-AI; 99232-AI; 99239; J1644; J1815; J7030

== ENCOUNTER → 2017-05-24 | Outpatient (CLI) | payer MEDICARE, MEDICAID ==
[~2017-05-24] MED LIST changes: +DEPAKOTE 125MG125 MG PO; +EXELON9.5 MG/24 TD; +FERROUS GL325 MG/TAB PO; +GENTLE LAXATIVE10 MG RC; +LOPRESSOR 550 MG/TAB PO; +MIRALAX PA17 GM/Dose PO; +NUPLAZID17 MG PO; +SYNTHROID0.075 MG/T PO
== END ==
LOC: COL.RAD 10:58
DX: I63.9 Cerebral infarction, unspecified (principal); G31.89 Other specified degenerative diseases of nervous system; G93.89 Other specified disorders of brain; G20 Parkinson's disease

== ENCOUNTER → 2017-06-04 | Outpatient (REF) | LOC: ZLAB.STJ 18:03 | DX: Z01.89 Encounter for other specified special examinations (principal) ==

== ENCOUNTER 2017-06-17 10:15 | Observation (INO) | payer MEDICARE, MEDICAID ==
[~2017-06-17] VITALS: Ht 170.2 cm; Wt 100.4 kg
[~2017-06-17 10:15] MED LIST changes: -NORVASC 10MG10 MG; +NORVASC 10MG10 MG PO; -PEPCID 20MG TAB20 MG; +PEPCID 20MG TAB20 MG PO; -ZYPREXA 5MG5 MG; +ZYPREXA 5MG5 MG PO
[2017-06-17 10:37] LABS: ARTERIAL BLD GAS O2 SATURATION 96.8 % (92-100); ARTERIAL BLD GAS TCO2 CT 26.9; ARTERIAL BLOOD GAS BASE EXCESS 1.1 (-2-2); ARTERIAL BLOOD GAS HCO3 25.7 meq/L (22-26); ARTERIAL BLOOD GAS PCO2 40.7 mmHg (35-45); ARTERIAL BLOOD GAS PO2 106.4 mmHg (80-100); ARTERIAL BLOOD GAS pH 7.42 (7.35-7.45)
[2017-06-17 10:48] LABS: BASO % 0.2 % (0.0-2.0); EOS # 0.1 (0.0-0.7); EOS % 0.7 % (0-4.0); GRAN # 5.9 (1.4-6.5); GRAN % 70.1 % (42.2-75.2); HEMATOCRIT 40.8 % (37.0-47.0); HEMOGLOBIN 13.3 g/dl (12.5-16.0); LYMPH # 1.7 (1.2-3.4); LYMPH % 20.7 % (20.0-51.0); MEAN CELL VOLUME 96 fl (80.0-100.0); MEAN CORPUSCULAR HEMOGLOBIN 31 pg (27.0-31.0); MEAN CORPUSCULAR HGB CONC 33 g/dl (33.0-37.0); MEAN PLATELET VOLUME 9.3 fl (7.4-10.4); MONO # 0.6 (0.1-0.6); MONO % 7.3 % (1.7-9.3); PLATELET COUNT 234 K/mm3 (130-400); RED BLOOD COUNT 4.26 M/mm3 (4.10-5.30); REDCELL DISTRIBUTION WIDTH-CV 14.5 % (11.5-14.5)
[2017-06-17 10:58] LABS: ALBUMIN 4.1 gm/dL (3.5-5.0); BILIRUBIN,TOTAL 0.5 mg/dL (0.0-1.0); CALCIUM 9.5 mg/dL (8.4-10.2); CREATININE, serum 1.29 mg/dL (0.52-1.25); POTASSIUM 3.5 mmol/L (3.4-5.0); TOTAL PROTEIN 7.4 gm/dL (6.4-8.2)
[2017-06-17 15:13] VITALS: BP 135/72; PULSE 93; TEMP 97.9
[2017-06-17] MEDS ORDERED: DEPAKOTE ER 50500 MG PO (16:27)
[2017-06-17] MEDS ORDERED: LASIX 20MG TABL20 MG PO (16:28)
[2017-06-17 20:48] VITALS: BP 142/77; PULSE 73; TEMP 98.6
[2017-06-18 00:58] VITALS: BP 162/85; PULSE 72; TEMP 97.6
[2017-06-18 04:31] VITALS: BP 128/76; PULSE 74
[2017-06-18 06:36] LABS: BASO % 0.4 % (0.0-2.0); EOS # 0.1 (0.0-0.7); EOS % 0.9 % (0-4.0); GRAN # 4.1 (1.4-6.5); GRAN % 60.1 % (42.2-75.2); HEMATOCRIT 41.6 % (37.0-47.0); HEMOGLOBIN 13.1 g/dl (12.5-16.0); LYMPH # 1.9 (1.2-3.4); LYMPH % 27.6 % (20.0-51.0); MEAN CELL VOLUME 100 fl (80.0-100.0); MEAN CORPUSCULAR HEMOGLOBIN 32 pg (27.0-31.0); MEAN CORPUSCULAR HGB CONC 32 g/dl (33.0-37.0); MEAN PLATELET VOLUME 9.4 fl (7.4-10.4); MONO # 0.7 (0.1-0.6); MONO % 10.4 % (1.7-9.3); PLATELET COUNT 197 K/mm3 (130-400); RED BLOOD COUNT 4.15 M/mm3 (4.10-5.30); REDCELL DISTRIBUTION WIDTH-CV 15.3 % (11.5-14.5)
[2017-06-18 06:42] LABS: CALCIUM 9.1 mg/dL (8.4-10.2); CREATININE, serum 1.28 mg/dL (0.52-1.25); POTASSIUM 3.4 mmol/L (3.4-5.0)
[2017-06-18 07:35] VITALS: BP 124/72; PULSE 68; TEMP 98.2
[2017-06-18 12:32] VITALS: BP 133/70; PULSE 79; TEMP 98.6
[2017-06-18 16:58] VITALS: BP 138/74; PULSE 85; TEMP 98.7
[2017-06-18 19:51] VITALS: BP 150/74; PULSE 83; TEMP 97.8
[2017-06-19 00:50] VITALS: BP 127/45; PULSE 65; TEMP 98.5
[2017-06-19 04:57] VITALS: BP 153/80; PULSE 80; TEMP 98.7
[2017-06-19 07:37] VITALS: BP 138/72; PULSE 86; TEMP 98.1
[2017-06-19 11:14] VITALS: BP 141/64; PULSE 85; TEMP 98.3
[2017-06-19 12:54] LABS: CALCIUM 9.3 mg/dL (8.4-10.2); CREATININE, serum 1.19 mg/dL (0.52-1.25); PHOSPHOROUS 3.5 mg/dL (2.5-4.5); POTASSIUM 3.5 mmol/L (3.4-5.0)
[2017-06-19] MEDS ORDERED: LIPITOR 80MG80 MG PO (13:26)
[2017-06-19] MEDS ORDERED: DEPAKOTE 250MG250 MG PO (13:27)
[2017-06-19] MEDS ORDERED: COREG12.5 MG PO (13:29)
[2017-06-19 15:26] VITALS: BP 141/64; PULSE 85; TEMP 98.3
== END 2017-06-19 15:30 ==
LOC: COL.ER 10:15 → MEDICAL 13:22
PROVIDERS: Family Medicine; Internal Medicine
DX: R41.82 Altered mental status, unspecified (principal); I63.9 Cerebral infarction, unspecified; F31.9 Bipolar disorder, unspecified; I25.10 Atherosclerotic heart disease of native coronary artery without angina pectoris; I13.0 Hypertensive heart and chronic kidney disease with heart failure and stage 1 through stage 4 chronic kidney disease, or unspecified chronic kidney disease; E11.22 Type 2 diabetes mellitus with diabetic chronic kidney disease; N18.9 Chronic kidney disease, unspecified; I50.30 Unspecified diastolic (congestive) heart failure; N17.9 Acute kidney failure, unspecified; E78.5 Hyperlipidemia, unspecified; G20 Parkinson's disease; F03.90 Unspecified dementia, unspecified severity, without behavioral disturbance, psychotic disturbance, mood disturbance, and anxiety; E03.9 Hypothyroidism, unspecified; Z90.710 Acquired absence of both cervix and uterus; Z96.652 Presence of left artificial knee joint; Z79.4 Long term (current) use of insulin; Z79.01 Long term (current) use of anticoagulants; Z79.82 Long term (current) use of aspirin; Z88.0 Allergy status to penicillin; Z88.8 Allergy status to other drugs, medicaments and biological substances; Z88.1 Allergy status to other antibiotic agents
CPT/HCPCS: 99222-AI; 99232-AI; 99239; G0378; G8978-GP; G8979-GP; J1644; J1815; J7120

== ENCOUNTER → 2017-07-05 | Outpatient (CLI) | payer MEDICARE, MEDICAID ==
[~2017-07-05] MED LIST changes: +COREG12.5 MG PO; +DEPAKOTE 250MG250 MG PO; +DEPAKOTE ER 50500 MG PO; +LASIX 20MG TABL20 MG PO; +LIPITOR 80MG80 MG PO
[2017-07-05 14:18] LABS: COLLECTION METHOD CATHETER
[2017-07-05 14:26] LABS: MUCOUS Present /lpf; PH 6 (5-8); SQUAMOUS EPITHELIAL 0-2 /hpf; URINE APPEARANCE Cloudy; URINE BACTERIA Rare /hpf; URINE BILIRUBIN Negative (NEGATIVE); URINE BLOOD Negative (NEGATIVE); URINE COLOR Amber; URINE GLUCOSE Negative (NEGATIVE); URINE KETONE Negative (NEGATIVE); URINE LEUKOCYTE ESTERASE 1+ (NEGATIVE); URINE NITRATE Negative (NEGATIVE); URINE PROTEIN(semi-quant) Negative (NEGATIVE); URINE RBC 0-2 /hpf
== END ==
LOC: ZLAB.STJ 14:14
PROVIDERS: Internal Medicine
DX: N30.00 Acute cystitis without hematuria (principal)

== ENCOUNTER → 2017-07-10 | Outpatient (CLI) | payer MEDICARE, MEDICAID ==
[2017-07-10 18:00] LABS: COLLECTION METHOD CATHETER
[2017-07-10 18:26] LABS: MUCOUS Present /lpf; PH 5 (5-8); URINE APPEARANCE Cloudy; URINE BACTERIA Rare /hpf; URINE BILIRUBIN Negative (NEGATIVE); URINE BLOOD 3+ (NEGATIVE); URINE CALCIUM OXALATE CRYSTAL Present /hpf; URINE COLOR Yellow; URINE GLUCOSE Negative (NEGATIVE); URINE KETONE Negative (NEGATIVE); URINE LEUKOCYTE ESTERASE 1+ (NEGATIVE); URINE NITRATE Negative (NEGATIVE); URINE PROTEIN(semi-quant) 2+ (NEGATIVE); URINE RBC >50 /hpf
== END ==
LOC: ZLAB.STJ 15:15
PROVIDERS: Internal Medicine
DX: N39.0 Urinary tract infection, site not specified (principal)

== ENCOUNTER → 2017-07-12 | Outpatient (CLI) | payer MEDICARE, MEDICAID ==
[2017-07-12 14:48] LABS: BASO % 0.5 % (0.0-2.0); EOS # 0.1 (0.0-0.7); EOS % 1.3 % (0-4.0); GRAN # 6.1 (1.4-6.5); GRAN % 69.7 % (42.2-75.2); HEMOGLOBIN 14.4 g/dl (12.5-16.0); LYMPH # 1.8 (1.2-3.4); LYMPH % 20.3 % (20.0-51.0); MEAN CELL VOLUME 94 fl (80.0-100.0); MEAN CORPUSCULAR HEMOGLOBIN 31 pg (27.0-31.0); MEAN CORPUSCULAR HGB CONC 34 g/dl (33.0-37.0); MEAN PLATELET VOLUME 9.3 fl (7.4-10.4); MONO # 0.6 (0.1-0.6); MONO % 7.2 % (1.7-9.3); PLATELET COUNT 302 K/mm3 (130-400); RED BLOOD COUNT 4.59 M/mm3 (4.10-5.30); REDCELL DISTRIBUTION WIDTH-CV 15.1 % (11.5-14.5)
[2017-07-12 15:14] LABS: CHOLESTEROL RISK RATIO 3.7
[2017-07-12 15:20] LABS: VALPROIC ACID (DEPAKENE) 46.2 ug/mL (50.0-100.0)
[2017-07-12 15:46] LABS: THYROID STIMULATING HORMONE 19.5 uIU/mL (0.465-4.680)
== END ==
LOC: ZCOL.LAB 14:22
PROVIDERS: Internal Medicine
DX: E78.5 Hyperlipidemia, unspecified (principal); E11.43 Type 2 diabetes mellitus with diabetic autonomic (poly)neuropathy; E89.0 Postprocedural hypothyroidism; F31.9 Bipolar disorder, unspecified; I25.119 Atherosclerotic heart disease of native coronary artery with unspecified angina pectoris

== ENCOUNTER → 2017-07-16 | Outpatient (REF) | LOC: ZLAB.STJ 17:03 | DX: S81.802A Unspecified open wound, left lower leg, initial encounter (principal) ==

== ENCOUNTER → 2017-07-21 | Outpatient (REF) ==
[2017-07-21 22:41] LABS: COLLECTION METHOD CATHETER
[2017-07-21 23:20] LABS: PH 6 (5-8); SQUAMOUS EPITHELIAL None Seen /hpf; URINE APPEARANCE Turbid; URINE BACTERIA Many /hpf; URINE BILIRUBIN Negative (NEGATIVE); URINE BLOOD 2+ (NEGATIVE); URINE COLOR Red; URINE GLUCOSE Negative (NEGATIVE); URINE KETONE Trace (NEGATIVE); URINE LEUKOCYTE ESTERASE Trace (NEGATIVE); URINE NITRATE Negative (NEGATIVE); URINE PROTEIN(semi-quant) 2+ (NEGATIVE); URINE RBC >50 /hpf; URINE UROBILINOGEN Negative (NEGATIVE); URINE WBC >50 /hpf
== END ==
LOC: ZLAB.STJ 22:40
PROVIDERS: Internal Medicine
DX: Z01.89 Encounter for other specified special examinations (principal)

== ENCOUNTER → 2017-08-02 | Outpatient (REF) ==
[~2017-08-02] MED LIST changes: +CIPRO 250MG TA250 MG PO; +CIPRO 500MG TA500 MG PO; +MULTI VITAMINS1 TAB PO; +NORVASC 5MG5 MG/TAB PO; +SINEMET 25/101 UDTAB PO; +THIAMINE 1100 MG/TAB PO; +VITAMIN C500 MG PO; +VITAMIN D31000 I1 PO; -VITAMIN D32000 IU PO; +XARELTO15 MG PO
[2017-08-02 06:44] LABS: MEAN CELL VOLUME 98 fl (80.0-100.0); MEAN CORPUSCULAR HGB CONC 33 g/dl (33.0-37.0); MEAN PLATELET VOLUME 9.1 fl (7.4-10.4); PLATELET COUNT 278 K/mm3 (130-400); RED BLOOD COUNT 2.93 M/mm3 (4.10-5.30); REDCELL DISTRIBUTION WIDTH-CV 18.7 % (11.5-14.5)
[2017-08-02 06:45] LABS: HEMATOCRIT 28.7 % (37.0-47.0); HEMOGLOBIN 9.4 g/dl (12.5-16.0); MEAN CORPUSCULAR HEMOGLOBIN 32 pg (27.0-31.0)
[2017-08-02 06:53] LABS: CALCIUM 9.1 mg/dL (8.4-10.2); CREATININE, serum 0.93 mg/dL (0.52-1.25); POTASSIUM 3.2 mmol/L (3.4-5.0)
== END ==
LOC: ZLAB.STJ 06:36
PROVIDERS: Internal Medicine
DX: E11.43 Type 2 diabetes mellitus with diabetic autonomic (poly)neuropathy (principal); I50.9 Heart failure, unspecified

== ENCOUNTER → 2017-08-20 | Outpatient (REF) ==
[2017-08-20 13:43] LABS: COLLECTION METHOD CATHETER
[2017-08-20 13:55] LABS: BUDDING YEAST Present /hpf; PH 9 (5-8); SQUAMOUS EPITHELIAL 0-2 /hpf; URINE APPEARANCE Turbid; URINE BACTERIA Rare /hpf; URINE BILIRUBIN Negative (NEGATIVE); URINE BLOOD 3+ (NEGATIVE); URINE CALCIUM OXALATE CRYSTAL Present /hpf; URINE COLOR Yellow; URINE GLUCOSE Negative (NEGATIVE); URINE KETONE Negative (NEGATIVE); URINE LEUKOCYTE ESTERASE 3+ (NEGATIVE); URINE NITRATE Positive (NEGATIVE); URINE PROTEIN(semi-quant) 1+ (NEGATIVE); URINE RBC >50 /hpf; URINE UROBILINOGEN Negative (NEGATIVE); URINE WBC >50 /hpf
== END ==
LOC: ZLAB.STJ 13:42
PROVIDERS: Internal Medicine
DX: R82.90 Unspecified abnormal findings in urine (principal); N39.0 Urinary tract infection, site not specified

== ENCOUNTER → 2017-10-01 | Outpatient (REF) ==
[2017-10-01 15:06] LABS: CREATININE, serum 1.02 mg/dL (0.52-1.25)
== END ==
LOC: ZLAB.STJ 14:44
PROVIDERS: Internal Medicine
DX: Z01.89 Encounter for other specified special examinations (principal)

== ENCOUNTER 2017-10-05 08:20 | Outpatient (CLI) | payer MEDICARE, MEDICAID ==
[~2017-10-05] VITALS: Ht 170.2 cm; Wt 97.8 kg
[~2017-10-05 08:20] MED LIST changes: -LANTUS100 U/ML SQ; +LEVEMIR100 U/ML SQ
[2017-10-05 10:51] VITALS: BP 157/82; PULSE 75; TEMP 97.8
[2017-10-05] MEDS ORDERED: NAMENDA 10MG TA10 MG PO (11:23)
[2017-10-05] MEDS ORDERED: MILK OF MA400 MG/52 PO (11:26)
[2017-10-05] MEDS ORDERED: GLUCERNA 240 M240 ML PO (11:29)
[2017-10-05] MEDS ORDERED: HALDOL 1MG T1 MG/TAB PO (11:30)
[2017-10-05] MEDS ORDERED: JUVEN1 PDR PO (11:31)
[2017-10-05 11:50] VITALS: BP 148/74; PULSE 78; TEMP 97.2
== END 2017-10-05 14:45 | disposition home or self-care (01) ==
LOC: SDCO 08:20 → COL.RAD 08:20
DX: Z01.812 Encounter for preprocedural laboratory examination (principal); T83.091A Other mechanical complication of indwelling urethral catheter, initial encounter; K80.20 Calculus of gallbladder without cholecystitis without obstruction; R31.0 Gross hematuria; Z90.710 Acquired absence of both cervix and uterus

== ENCOUNTER 2017-10-12 19:27 | Inpatient (IN) | payer MEDICARE, MEDICAID ==
[~2017-10-12] VITALS: Ht 162.6 cm; Wt 96.8 kg
[~2017-10-12 19:27] MED LIST changes: +GLUCERNA 240 M240 ML PO; +HALDOL 1MG T1 MG/TAB PO; +ISOSORBIDE MON120 MG PO; +JUVEN1 PDR PO; +MILK OF MA400 MG/52 PO; +NAMENDA 10MG TA10 MG PO
[2017-10-12 22:04] LABS: COLLECTION METHOD CATHETER
[2017-10-12 22:12] LABS: MUCOUS Present /lpf; PH 8 (5-8); SQUAMOUS EPITHELIAL None Seen /hpf; URINE APPEARANCE Turbid; URINE BACTERIA Rare /hpf; URINE BILIRUBIN Negative (NEGATIVE); URINE BLOOD Negative (NEGATIVE); URINE COLOR Yellow; URINE GLUCOSE Negative (NEGATIVE); URINE KETONE Negative (NEGATIVE); URINE LEUKOCYTE ESTERASE 2+ (NEGATIVE); URINE NITRATE Positive (NEGATIVE); URINE PROTEIN(semi-quant) 3+ (NEGATIVE); URINE UROBILINOGEN Negative (NEGATIVE)
[2017-10-12 22:51] LABS: BASO % 0.2 % (0.0-2.0); EOS # 0.1 (0.0-0.7); EOS % 0.5 % (0-4.0); GRAN # 11.4 (1.4-6.5); GRAN % 78.2 % (42.2-75.2); HEMATOCRIT 34.8 % (37.0-47.0); HEMOGLOBIN 11.1 g/dl (12.5-16.0); LYMPH # 1.7 (1.2-3.4); LYMPH % 11.8 % (20.0-51.0); MEAN CELL VOLUME 95 fl (80.0-100.0); MEAN CORPUSCULAR HEMOGLOBIN 30 pg (27.0-31.0); MEAN CORPUSCULAR HGB CONC 32 g/dl (33.0-37.0); MEAN PLATELET VOLUME 8.8 fl (7.4-10.4); MONO # 1.3 (0.1-0.6); MONO % 8.8 % (1.7-9.3); PLATELET COUNT 277 K/mm3 (130-400); RED BLOOD COUNT 3.66 M/mm3 (4.10-5.30)
[2017-10-12 23:02] LABS: ALANINE AMINOTRANSFERASE 7 U/L (9-52); ALBUMIN 3.4 gm/dL (3.5-5.0); ALKALINE PHOSPHATASE 81 U/L (50-136); ANION GAP 12 mmol/L (7-16); AST,SGOT 29 U/L (15-37); BILIRUBIN,TOTAL 0.5 mg/dL (0.0-1.0); BLOOD UREA NITROGEN 32 mg/dL (7-17); CALCIUM 8.8 mg/dL (8.4-10.2); CARBON DIOXIDE 32 mmol/L (22-30); CHLORIDE 99 mmol/L (98-107); GLUCOSE 87 mg/dL (74-106); MAGNESIUM 2.2 mg/dL (1.6-2.3); PHOSPHOROUS 3.7 mg/dL (2.5-4.5); POTASSIUM 3.6 mmol/L (3.4-5.0); SODIUM 143 mmol/L (137-145); TOTAL PROTEIN 7.5 gm/dL (6.4-8.2)
[2017-10-12 23:15] LABS: TROPONIN-I < 0.012 ng/mL (0.000-0.034)
[2017-10-13] MEDS ORDERED: NATURE'S BLEND100 M2 PO
[2017-10-13] MEDS ORDERED: VITAMIN D31000 I1 PO (00:05)
[2017-10-13 00:43] VITALS: BP 162/78; PULSE 86; TEMP 99.6
[2017-10-13] MEDS ORDERED: RANEXA 500MG T500 MG PO (00:55)
[2017-10-13] MEDS ORDERED: XARELTO20 MG PO (01:17)
[2017-10-13 04:00] VITALS: BP 104/61; PULSE 82; TEMP 99.6
[2017-10-13 07:43] LABS: BASO % 0.2 % (0.0-2.0); EOS # 0.1 (0.0-0.7); EOS % 0.8 % (0-4.0); GRAN # 7.8 (1.4-6.5); GRAN % 72.8 % (42.2-75.2); HEMOGLOBIN 10.7 g/dl (12.5-16.0); LYMPH # 1.7 (1.2-3.4); LYMPH % 16.2 % (20.0-51.0); MEAN CELL VOLUME 93 fl (80.0-100.0); MEAN CORPUSCULAR HEMOGLOBIN 30 pg (27.0-31.0); MEAN CORPUSCULAR HGB CONC 32 g/dl (33.0-37.0); MEAN PLATELET VOLUME 9.3 fl (7.4-10.4); MONO % 9.3 % (1.7-9.3); PLATELET COUNT 237 K/mm3 (130-400); RED BLOOD COUNT 3.58 M/mm3 (4.10-5.30); REDCELL DISTRIBUTION WIDTH-CV 15.1 % (11.5-14.5)
[2017-10-13 07:44] LABS: CALCIUM 8.5 mg/dL (8.4-10.2); CREATININE, serum 1.12 mg/dL (0.52-1.25); POTASSIUM 3.2 mmol/L (3.4-5.0)
[2017-10-13 07:47] LABS: HEMATOCRIT 33.4 % (37.0-47.0)
[2017-10-13 08:02] VITALS: BP 149/58; PULSE 80; TEMP 98.8
[2017-10-13 12:12] VITALS: BP 107/50; PULSE 71; TEMP 98.4
[2017-10-13 16:05] VITALS: BP 141/69; PULSE 77; TEMP 99.4
[2017-10-13 19:47] VITALS: BP 141/63; PULSE 87; TEMP 98.9
[2017-10-14] VITALS (7 sets, daily range): BP systolic 106–164; BP diastolic 57–77; PULSE 80–92; TEMP 98.1–100.2
[2017-10-14 06:47] LABS: BASO % 0.4 % (0.0-2.0); EOS # 0.1 (0.0-0.7); EOS % 1.5 % (0-4.0); GRAN # 5.1 (1.4-6.5); GRAN % 64.3 % (42.2-75.2); LYMPH % 24.7 % (20.0-51.0); MEAN CELL VOLUME 97 fl (80.0-100.0); MEAN CORPUSCULAR HGB CONC 31 g/dl (33.0-37.0); MEAN PLATELET VOLUME 9.3 fl (7.4-10.4); MONO # 0.7 (0.1-0.6); MONO % 8.7 % (1.7-9.3); PLATELET COUNT 212 K/mm3 (130-400); RED BLOOD COUNT 2.99 M/mm3 (4.10-5.30); REDCELL DISTRIBUTION WIDTH-CV 14.8 % (11.5-14.5)
[2017-10-14 07:01] LABS: MEAN CORPUSCULAR HEMOGLOBIN 30 pg (27.0-31.0)
[2017-10-14 07:02] LABS: HEMATOCRIT 28.9 % (37.0-47.0)
[2017-10-14 07:06] LABS: CALCIUM 7.8 mg/dL (8.4-10.2); CREATININE, serum 0.93 mg/dL (0.52-1.25); POTASSIUM 3.4 mmol/L (3.4-5.0)
[2017-10-15 04:44] VITALS: BP 146/73; PULSE 93; TEMP 98.1
[2017-10-15 07:23] VITALS: BP 141/79; PULSE 80; TEMP 98.3
[2017-10-15 11:22] VITALS: BP 142/67; PULSE 79; TEMP 98.4
[2017-10-15 15:46] VITALS: BP 145/73; PULSE 66; TEMP 98.4
[2017-10-15 19:54] VITALS: BP 173/80; PULSE 82; TEMP 99.7
[2017-10-15 23:49] VITALS: BP 149/65; PULSE 79; TEMP 98.1
[2017-10-16 04:05] VITALS: BP 137/74; PULSE 74; TEMP 97.6
[2017-10-16 06:50] LABS: BASO % 0.3 % (0.0-2.0); EOS # 0.1 (0.0-0.7); EOS % 1.8 % (0-4.0); GRAN # 5.1 (1.4-6.5); GRAN % 66.4 % (42.2-75.2); LYMPH # 1.8 (1.2-3.4); LYMPH % 24.1 % (20.0-51.0); MEAN CELL VOLUME 95 fl (80.0-100.0); MEAN CORPUSCULAR HGB CONC 31 g/dl (33.0-37.0); MEAN PLATELET VOLUME 9.1 fl (7.4-10.4); MONO # 0.5 (0.1-0.6); MONO % 6.9 % (1.7-9.3); PLATELET COUNT 219 K/mm3 (130-400); RED BLOOD COUNT 3.22 M/mm3 (4.10-5.30); REDCELL DISTRIBUTION WIDTH-CV 14.5 % (11.5-14.5)
[2017-10-16 06:58] LABS: HEMATOCRIT 30.7 % (37.0-47.0); HEMOGLOBIN 9.6 g/dl (12.5-16.0); MEAN CORPUSCULAR HEMOGLOBIN 30 pg (27.0-31.0)
[2017-10-16 07:02] LABS: CALCIUM 8.4 mg/dL (8.4-10.2); CREATININE, serum 0.79 mg/dL (0.52-1.25); POTASSIUM 3.2 mmol/L (3.4-5.0)
[2017-10-16 09:48] VITALS: BP 162/76; PULSE 86; TEMP 98.9
[2017-10-16 11:40] VITALS: BP 151/74; PULSE 89; TEMP 98.8
[2017-10-16 16:06] VITALS: BP 156/80; PULSE 86; TEMP 97.5
[2017-10-16 20:50] VITALS: BP 144/59; PULSE 85; TEMP 98.4
[2017-10-16 23:50] VITALS: BP 151/79; PULSE 83; TEMP 98.4
[2017-10-17 05:36] VITALS: BP 143/78; PULSE 80; TEMP 98.6
[2017-10-17 08:54] VITALS: BP 138/63; PULSE 76; TEMP 98
[2017-10-17 09:18] LABS: BASO % 0.4 % (0.0-2.0); EOS # 0.1 (0.0-0.7); EOS % 1.7 % (0-4.0); GRAN # 5.9 (1.4-6.5); GRAN % 71.9 % (42.2-75.2); LYMPH # 1.6 (1.2-3.4); LYMPH % 19.1 % (20.0-51.0); MEAN CELL VOLUME 94 fl (80.0-100.0); MEAN CORPUSCULAR HGB CONC 32 g/dl (33.0-37.0); MEAN PLATELET VOLUME 9.2 fl (7.4-10.4); MONO # 0.5 (0.1-0.6); MONO % 6.4 % (1.7-9.3); PLATELET COUNT 221 K/mm3 (130-400); RED BLOOD COUNT 3.25 M/mm3 (4.10-5.30); REDCELL DISTRIBUTION WIDTH-CV 14.7 % (11.5-14.5)
[2017-10-17 09:19] LABS: HEMATOCRIT 30.6 % (37.0-47.0); HEMOGLOBIN 9.8 g/dl (12.5-16.0); MEAN CORPUSCULAR HEMOGLOBIN 30 pg (27.0-31.0)
[2017-10-17 09:24] LABS: CALCIUM 8.4 mg/dL (8.4-10.2); CREATININE, serum 0.81 mg/dL (0.52-1.25); POTASSIUM 3.4 mmol/L (3.4-5.0)
[2017-10-17 12:47] VITALS: BP 151/73; PULSE 75; TEMP 98.6
[2017-10-17 13:04] VITALS: BP 151/73; PULSE 75; TEMP 98.6
== END 2017-10-17 16:15 | DRG 698 ==
LOC: COL.ER 19:27 → SURG 23:30
PROVIDERS: Emergency Medicine; Family Medicine; Nurse Practitioner Family; Physician Assistant
PROC: 02HV33Z Insertion of Infusion Device into Superior Vena Cava, Percutaneous Approach (ICD-10-PCS; principal; 2017-10-13)
DX: T83.510A Infection and inflammatory reaction due to cystostomy catheter, initial encounter (principal); L89.323 Pressure ulcer of left buttock, stage 3; G93.40 Encephalopathy, unspecified; I50.32 Chronic diastolic (congestive) heart failure; I69.354 Hemiplegia and hemiparesis following cerebral infarction affecting left non-dominant side; I11.0 Hypertensive heart disease with heart failure; B96.4 Proteus (mirabilis) (morganii) as the cause of diseases classified elsewhere; B95.2 Enterococcus as the cause of diseases classified elsewhere; B96.20 Unspecified Escherichia coli [E. coli] as the cause of diseases classified elsewhere; F02.80 Dementia in other diseases classified elsewhere, unspecified severity, without behavioral disturbance, psychotic disturbance, mood disturbance, and anxiety; E11.42 Type 2 diabetes mellitus with diabetic polyneuropathy; I25.10 Atherosclerotic heart disease of native coronary artery without angina pectoris; Z95.5 Presence of coronary angioplasty implant and graft; G20 Parkinson's disease; F31.9 Bipolar disorder, unspecified; Z86.718 Personal history of other venous thrombosis and embolism; Z79.01 Long term (current) use of anticoagulants; Z79.4 Long term (current) use of insulin
CPT/HCPCS: 99222-AI; 99232-AI; 99239; A9284; C1751; C1894; J1815; J2185; J7030; J7040

== ENCOUNTER → 2017-10-19 | Outpatient (CLI) | payer MEDICARE, MEDICAID ==
[~2017-10-19] MED LIST changes: +NATURE'S BLEND100 M2 PO; +XARELTO20 MG PO
== END ==
LOC: COL.VAS 14:00
DX: M79.89 Other specified soft tissue disorders (principal)

== ENCOUNTER 2017-10-23 11:13 | Emergency (ER) | payer MEDICARE, MEDICAID ==
[~2017-10-23] VITALS: Ht 172.7 cm; Wt 79.5 kg
[2017-10-23 11:22] VITALS: TEMP 97.2
[2017-10-23 12:06] LABS: BASO % 0.4 % (0.0-2.0); EOS # 0.4 (0.0-0.7); EOS % 4.5 % (0-4.0); GRAN # 5.7 (1.4-6.5); GRAN % 72.6 % (42.2-75.2); HEMOGLOBIN 11.2 g/dl (12.5-16.0); LYMPH # 1.3 (1.2-3.4); LYMPH % 16.6 % (20.0-51.0); MEAN CELL VOLUME 92 fl (80.0-100.0); MEAN CORPUSCULAR HEMOGLOBIN 30 pg (27.0-31.0); MEAN CORPUSCULAR HGB CONC 32 g/dl (33.0-37.0); MONO # 0.4 (0.1-0.6); MONO % 5.4 % (1.7-9.3); PLATELET COUNT 248 K/mm3 (130-400); RED BLOOD COUNT 3.79 M/mm3 (4.10-5.30); REDCELL DISTRIBUTION WIDTH-CV 15.3 % (11.5-14.5)
[2017-10-23 12:09] LABS: HEMATOCRIT 34.9 % (37.0-47.0)
[2017-10-23 12:10] LABS: ARTERIAL BLD GAS O2 SATURATION 91.2 % (92-100); ARTERIAL BLD GAS TCO2 CT 32.2; ARTERIAL BLOOD GAS BASE EXCESS 5.8 (-2-2); ARTERIAL BLOOD GAS HCO3 30.8 meq/L (22-26); ARTERIAL BLOOD GAS PCO2 46.4 mmHg (35-45); ARTERIAL BLOOD GAS PO2 65.6 mmHg (80-100); ARTERIAL BLOOD GAS pH 7.44 (7.35-7.45)
[2017-10-23 12:15] LABS: ALBUMIN 3.4 gm/dL (3.5-5.0); BILIRUBIN,TOTAL 0.5 mg/dL (0.0-1.0); CREATININE, serum 0.7 mg/dL (0.52-1.25); TOTAL PROTEIN 7.1 gm/dL (6.4-8.2)
[2017-10-23 12:28] LABS: COLLECTION METHOD CLEAN CATCH
[2017-10-23 12:37] LABS: PH 6 (5-8); SQUAMOUS EPITHELIAL 0-2 /hpf; URINE APPEARANCE Hazy; URINE BACTERIA None Seen /hpf; URINE BILIRUBIN Negative (NEGATIVE); URINE BLOOD Negative (NEGATIVE); URINE COLOR Yellow; URINE GLUCOSE Negative (NEGATIVE); URINE KETONE Trace (NEGATIVE); URINE LEUKOCYTE ESTERASE 2+ (NEGATIVE); URINE NITRATE Negative (NEGATIVE); URINE PROTEIN(semi-quant) Negative (NEGATIVE); URINE UROBILINOGEN Negative (NEGATIVE)
[2017-10-23] MEDS ORDERED: PLAVIX 75MG TAB75 MG PO (13:20)
[2017-10-23 16:15] VITALS: BP 173/103; PULSE 80
== END 2017-10-23 16:15 | disposition home or self-care (01) ==
LOC: COL.ER 11:13
PROVIDERS: Family Medicine
DX: S06.0X0A Concussion without loss of consciousness, initial encounter (principal); N39.0 Urinary tract infection, site not specified; R41.0 Disorientation, unspecified; E11.9 Type 2 diabetes mellitus without complications; F03.90 Unspecified dementia, unspecified severity, without behavioral disturbance, psychotic disturbance, mood disturbance, and anxiety; Z79.4 Long term (current) use of insulin; Z79.82 Long term (current) use of aspirin; W19.XXXA Unspecified fall, initial encounter
CPT/HCPCS: J1956; J7030

== ENCOUNTER → 2017-11-23 | Outpatient (CLI) | payer MEDICARE, MEDICAID ==
[2017-11-23 09:38] LABS: ALBUMIN 3.4 gm/dL (3.5-5.0); BILIRUBIN,TOTAL 0.5 mg/dL (0.0-1.0); CALCIUM 9.1 mg/dL (8.4-10.2); CREATININE, serum 0.79 mg/dL (0.52-1.25); POTASSIUM 3.9 mmol/L (3.4-5.0); TOTAL PROTEIN 6.6 gm/dL (6.4-8.2)
== END ==
LOC: ZLAB.STJ 09:18
PROVIDERS: Internal Medicine
DX: E11.43 Type 2 diabetes mellitus with diabetic autonomic (poly)neuropathy (principal); I25.10 Atherosclerotic heart disease of native coronary artery without angina pectoris

== ENCOUNTER → 2017-12-17 | Outpatient (CLI) | payer MEDICARE, MEDICAID | LOC: ZLAB.STJ 16:05 | DX: Z01.89 Encounter for other specified special examinations (principal) ==

== ENCOUNTER 2017-12-24 03:46 | Inpatient (IN) | payer MEDICARE, MEDICAID ==
[~2017-12-24] VITALS: Ht 170.2 cm; Wt 88.8 kg
[2017-12-24] VITALS (7 sets, daily range): BP systolic 100–147; BP diastolic 62–99; PULSE 64–104; TEMP 97.5–98.4
[2017-12-24 04:42] LABS: COLLECTION METHOD CATHETER
[2017-12-24 04:45] LABS: HEMOGLOBIN 11.9 g/dl (12.5-16.0); MEAN CELL VOLUME 95 fl (80.0-100.0); MEAN CORPUSCULAR HEMOGLOBIN 31 pg (27.0-31.0); MEAN CORPUSCULAR HGB CONC 33 g/dl (33.0-37.0); MEAN PLATELET VOLUME 9.2 fl (7.4-10.4); PLATELET COUNT 219 K/mm3 (130-400); RED BLOOD COUNT 3.87 M/mm3 (4.10-5.30); REDCELL DISTRIBUTION WIDTH-CV 18.6 % (11.5-14.5)
[2017-12-24 04:48] LABS: HEMATOCRIT 36.6 % (37.0-47.0)
[2017-12-24 05:07] LABS: URINE COLOR Red
[2017-12-24 05:08] LABS: PH 7 (5-8); URINE APPEARANCE Cloudy; URINE BILIRUBIN Negative (NEGATIVE); URINE BLOOD 3+ (NEGATIVE); URINE GLUCOSE Negative (NEGATIVE); URINE KETONE Negative (NEGATIVE); URINE NITRATE Positive (NEGATIVE); URINE PROTEIN(semi-quant) 2+ (NEGATIVE); URINE UROBILINOGEN Negative (NEGATIVE)
[2017-12-24 05:09] LABS: URINE LEUKOCYTE ESTERASE 3+ (NEGATIVE)
[2017-12-24 05:14] LABS: URINE RBC >50 /hpf
[2017-12-24 05:36] LABS: ANISOCYTOSIS 2+; BAND 12 % (0-10); EOSINOPHIL 2 % (0-4); LYMPHOCYTE 18 % (20.0-51.0); NEUTROPHILS 63 % (42.0-75.2); PLATELET ESTIMATE NORMAL (NORMAL)
[2017-12-24] MEDS ORDERED: ZYPREXA10 MG PO (05:44)
[2017-12-24 05:48] LABS: ALBUMIN 3.6 gm/dL (3.5-5.0); BILIRUBIN,TOTAL 0.6 mg/dL (0.0-1.0); CALCIUM 9.2 mg/dL (8.4-10.2); CREATININE, serum 1.7 mg/dL (0.52-1.25); MAGNESIUM 2.2 mg/dL (1.6-2.3); PHOSPHOROUS 4.9 mg/dL (2.5-4.5); POTASSIUM 3.8 mmol/L (3.4-5.0); TOTAL PROTEIN 7.1 gm/dL (6.4-8.2)
[2017-12-24 05:57] LABS: TROPONIN-I 0.028 ng/mL (0.000-0.034)
[2017-12-24 06:04] LABS: C-REACTIVE PROTEIN 16.5 mg/dL (0.0-0.9)
[2017-12-25 03:15] VITALS: BP 162/82; PULSE 88; TEMP 97.8
[2017-12-25 05:29] LABS: BASO % 0.2 % (0.0-2.0); EOS # 0.1 (0.0-0.7); EOS % 0.9 % (0-4.0); GRAN # 7.8 (1.4-6.5); GRAN % 78.4 % (42.2-75.2); LYMPH # 1.3 (1.2-3.4); LYMPH % 12.8 % (20.0-51.0); MEAN CELL VOLUME 95 fl (80.0-100.0); MEAN CORPUSCULAR HGB CONC 32 g/dl (33.0-37.0); MEAN PLATELET VOLUME 9.2 fl (7.4-10.4); MONO # 0.7 (0.1-0.6); MONO % 6.5 % (1.7-9.3); PLATELET COUNT 159 K/mm3 (130-400); RED BLOOD COUNT 2.86 M/mm3 (4.10-5.30); REDCELL DISTRIBUTION WIDTH-CV 18.2 % (11.5-14.5)
[2017-12-25 05:39] LABS: CALCIUM 6.4 mg/dL (8.4-10.2); CREATININE, serum 0.72 mg/dL (0.52-1.25)
[2017-12-25 05:42] LABS: HEMATOCRIT 27.2 % (37.0-47.0); HEMOGLOBIN 8.6 g/dl (12.5-16.0); MEAN CORPUSCULAR HEMOGLOBIN 30 pg (27.0-31.0)
[2017-12-25 05:51] LABS: POTASSIUM 2.7 mmol/L (3.4-5.0)
[2017-12-25 08:26] VITALS: BP 143/72; PULSE 83; TEMP 98.5
[2017-12-25 12:15] VITALS: BP 105/68; PULSE 87; TEMP 99.3
[2017-12-25 15:27] VITALS: BP 122/58; PULSE 88; TEMP 99.6
[2017-12-25 20:26] VITALS: BP 138/64; PULSE 72; TEMP 98.2
[2017-12-25 23:15] VITALS: BP 130/68; PULSE 80; TEMP 98.1
[2017-12-26 03:37] VITALS: BP 128/74; PULSE 76; TEMP 98.2
[2017-12-26 07:19] LABS: MEAN CELL VOLUME 97 fl (80.0-100.0); MEAN CORPUSCULAR HGB CONC 32 g/dl (33.0-37.0); MEAN PLATELET VOLUME 9.4 fl (7.4-10.4); PLATELET COUNT 181 K/mm3 (130-400); RED BLOOD COUNT 2.99 M/mm3 (4.10-5.30); REDCELL DISTRIBUTION WIDTH-CV 18.6 % (11.5-14.5)
[2017-12-26 07:23] LABS: HEMATOCRIT 28.9 % (37.0-47.0); HEMOGLOBIN 9.1 g/dl (12.5-16.0); MEAN CORPUSCULAR HEMOGLOBIN 30 pg (27.0-31.0)
[2017-12-26 07:28] LABS: CALCIUM 7.9 mg/dL (8.4-10.2); CREATININE, serum 1.05 mg/dL (0.52-1.25); POTASSIUM 4.3 mmol/L (3.4-5.0)
[2017-12-26] MEDS ORDERED: ROCEPHIN VIA1 G/VIAL IV (08:26)
[2017-12-26 08:33] VITALS: BP 135/70; PULSE 85; TEMP 98.5
[2017-12-26] MEDS ORDERED: LIPITOR20 MG PO (08:35)
[2017-12-26 09:12] LABS: ANISOCYTOSIS 2+; BAND 2 % (0-10); LYMPHOCYTE 33 % (20.0-51.0); NEUTROPHILS 64 % (42.0-75.2)
[2017-12-26 09:13] LABS: HYPOCHROMIA 2+; OVALOCYTES 1+; PLATELET ESTIMATE NORMAL (NORMAL)
[2017-12-26 11:32] VITALS: BP 135/70; PULSE 85; TEMP 98.5
[2017-12-26 11:38] VITALS: BP 109/63; PULSE 92; TEMP 97.4
== END 2017-12-26 14:06 | DRG 698 ==
LOC: COL.ER 03:46 → SURG 06:17
PROVIDERS: Emergency Medicine; Student in an Organized Health Care Education/Training Program
PROC: 02H633Z Insertion of Infusion Device into Right Atrium, Percutaneous Approach (ICD-10-PCS; principal; 2017-12-24)
DX: T83.511A Infection and inflammatory reaction due to indwelling urethral catheter, initial encounter (principal); L89.153 Pressure ulcer of sacral region, stage 3; G93.41 Metabolic encephalopathy; N17.9 Acute kidney failure, unspecified; I50.32 Chronic diastolic (congestive) heart failure; I69.354 Hemiplegia and hemiparesis following cerebral infarction affecting left non-dominant side; Z66 Do not resuscitate; N39.0 Urinary tract infection, site not specified; B96.4 Proteus (mirabilis) (morganii) as the cause of diseases classified elsewhere; E87.6 Hypokalemia; F03.90 Unspecified dementia, unspecified severity, without behavioral disturbance, psychotic disturbance, mood disturbance, and anxiety; E11.649 Type 2 diabetes mellitus with hypoglycemia without coma; I11.0 Hypertensive heart disease with heart failure; E11.42 Type 2 diabetes mellitus with diabetic polyneuropathy; G20 Parkinson's disease; I25.10 Atherosclerotic heart disease of native coronary artery without angina pectoris; Z95.5 Presence of coronary angioplasty implant and graft; Z79.4 Long term (current) use of insulin; F31.9 Bipolar disorder, unspecified; Z86.718 Personal history of other venous thrombosis and embolism; Z79.01 Long term (current) use of anticoagulants
CPT/HCPCS: 99223-AI; 99233-AI; 99239; C1751; C1894; J0696; J1815; J2185; J3480; J7030

== ENCOUNTER → 2018-01-01 | Emergency (ER) | payer MEDICARE, MEDICAID ==
[~2018-01-01] VITALS: Ht 172.7 cm; Wt 109.1 kg
[~2018-01-01] MED LIST changes: +GLUCERNA 240 M240 ML; +LIPITOR20 MG PO; +ROCEPHIN VIA1 G/VIAL IV; +ZYPREXA10 MG PO
[2018-01-01 11:12] VITALS: TEMP 97.1
[2018-01-01 11:19] LABS: BASO % 0.4 % (0.0-2.0); EOS # 0.1 (0.0-0.7); EOS % 1.2 % (0-4.0); GRAN # 6.9 (1.4-6.5); LYMPH # 2.3 (1.2-3.4); LYMPH % 22.5 % (20.0-51.0); MEAN CELL VOLUME 96 fl (80.0-100.0); MEAN CORPUSCULAR HEMOGLOBIN 30 pg (27.0-31.0); MEAN CORPUSCULAR HGB CONC 32 g/dl (33.0-37.0); MEAN PLATELET VOLUME 8.8 fl (7.4-10.4); MONO # 0.7 (0.1-0.6); MONO % 7.1 % (1.7-9.3); PLATELET COUNT 254 K/mm3 (130-400); REDCELL DISTRIBUTION WIDTH-CV 17.9 % (11.5-14.5)
[2018-01-01 11:21] LABS: HEMATOCRIT 31.5 % (37.0-47.0)
[2018-01-01 11:25] LABS: INR 1.2 (0.8-3.0); PROTHROMBIN TIME 13.5 SECONDS (9.7-12.8)
[2018-01-01 11:27] LABS: PARTIAL THROMBOPLASTIN TIME 43.5 SECONDS (26.0-37.0)
[2018-01-01 11:32] LABS: ALBUMIN 3.1 gm/dL (3.5-5.0); BILIRUBIN,TOTAL 0.3 mg/dL (0.0-1.0); CALCIUM 8.2 mg/dL (8.4-10.2); CREATININE, serum 1.07 mg/dL (0.52-1.25); PHOSPHOROUS 3.8 mg/dL (2.5-4.5); POTASSIUM 3.5 mmol/L (3.4-5.0); TOTAL PROTEIN 6.2 gm/dL (6.4-8.2)
[2018-01-01 11:40] LABS: TROPONIN-I 0.032 ng/mL (0.000-0.034)
[2018-01-01 12:43] LABS: COLLECTION METHOD CLEAN CATCH
[2018-01-01 13:12] LABS: BUDDING YEAST Present /hpf; MUCOUS Present /lpf; PH 7 (5-8); SQUAMOUS EPITHELIAL 0-2 /hpf; URINE APPEARANCE Cloudy; URINE BACTERIA Rare /hpf; URINE BILIRUBIN Negative (NEGATIVE); URINE BLOOD Negative (NEGATIVE); URINE COLOR Yellow; URINE GLUCOSE Negative (NEGATIVE); URINE KETONE Negative (NEGATIVE); URINE LEUKOCYTE ESTERASE 2+ (NEGATIVE); URINE NITRATE Negative (NEGATIVE); URINE PROTEIN(semi-quant) 1+ (NEGATIVE); URINE UROBILINOGEN Negative (NEGATIVE)
[2018-01-01 14:31] LABS: ARTERIAL BLD GAS O2 SATURATION 95.4 % (92-100); ARTERIAL BLD GAS TCO2 CT 25.6; ARTERIAL BLOOD GAS BASE EXCESS 3.2 (-2-2); ARTERIAL BLOOD GAS HCO3 24.7 meq/L (22-26); ARTERIAL BLOOD GAS PO2 77.2 mmHg (80-100); ARTERIAL BLOOD GAS pH 7.56 (7.35-7.45)
[2018-01-01 14:44] LABS: TSH w REFLEX 30.8 uIU/mL (0.465-4.680)
[2018-01-01 15:15] VITALS: BP 152/86
[2018-01-01 15:16] VITALS: PULSE 70
== END ==
LOC: COL.ER 11:04
PROVIDERS: Emergency Medicine; Nurse Practitioner Family
DX: J96.90 Respiratory failure, unspecified, unspecified whether with hypoxia or hypercapnia (principal); R41.82 Altered mental status, unspecified; I95.9 Hypotension, unspecified; I10 Essential (primary) hypertension; E11.9 Type 2 diabetes mellitus without complications; I50.9 Heart failure, unspecified; I25.10 Atherosclerotic heart disease of native coronary artery without angina pectoris; F03.90 Unspecified dementia, unspecified severity, without behavioral disturbance, psychotic disturbance, mood disturbance, and anxiety; Z86.718 Personal history of other venous thrombosis and embolism
CPT/HCPCS: J0330; J0692; J2704; J3010; J7030; J7040; J7060